=== PATIENT | female | born 2000 | race Caucasian/White ===

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

== ENCOUNTER 2021-06-14 15:10 | Outpatient (CLI) | payer OTHER, SELFPAY | END 2021-06-14 15:11 | disposition home or self-care (01) | LOC: MADRAD 15:10 | PROVIDERS: ATTEND Family Medicine | DX: M25.561 Pain in right knee (principal) ==

== ENCOUNTER 2021-08-11 17:03 | Emergency (ER) | payer OTHER | END 2021-08-11 18:25 | disposition home or self-care (01) | LOC: MADERS 17:03 | DX: S50.02XA Contusion of left elbow, initial encounter (principal); W21.07XA Struck by softball, initial encounter | CPT/HCPCS: 99283 ==

== ENCOUNTER 2022-05-08 10:11 | Outpatient (CLI) | payer OTHER | END 2022-05-08 10:12 | disposition home or self-care (01) | LOC: MADULT 10:11 | PROVIDERS: ATTEND Family Medicine | DX: R10.2 Pelvic and perineal pain (principal); N83.202 Unspecified ovarian cyst, left side | CPT/HCPCS: 76856 ==